=== PATIENT | female | born 1975 ===

== ENCOUNTER 2022-06-08 15:05 | Emergency (ER) | payer OTHER, SELFPAY ==
--- NOTE | ~2022-06-08 | XR_ITS ---
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 RESULT: Lines, tubes, and devices: None. Lungs and pleura: Clear. Cardiomediastinal silhouette: Normal. Other: No acute osseous or upper abdominal finding. IMPRESSION: No acute cardiopulmonary process. Reviewed, dictated and finalized at location K. LLENCE LEADER
[2022-06-08 15:46] VITALS: BP 150/90; PULSE 91; RESP 18; TEMP 36.2; O2SAT 99
--- NOTE | 2022-06-08 16:16 | ED.URI ---
HPI - URI/Sore Throat General Chief Complaint: Upper Respiratory Infection Stated Complaint: Shortness of Breath,Weezing Time Seen by Provider: 06/08/22 16:09 Source: patient Mode of arrival: ambulatory Limitations: no limitations History of Present Illness HPI Narrative: Patient presents today complaining of a 2 week history of sinus pressure, decreased appetite, cough, shortness of breath. She also reports, ?bubbling? with exhalation, mostly at night. She saw her PCP 6 days ago and was placed on amoxicillin, cough medicine, and an inhaler, but has not been improving since that time. Denies history of asthma. Related Data Home Medications Medication Instructions Recorded Confirmed simvastatin 20 mg tablet 20 mg PO DAILY 04/23/22 06/08/22 Probotic 1 tab-cap BYMOUTH DAILY 05/08/22 06/08/22 cholecalciferol (vitamin D3) 50 50 mcg PO DAILY 05/08/22 06/08/22 mcg (2,000 unit) capsule igkrtame-komnhzy-wjza-iron 18 1 tablet PO DAILY 05/08/22 06/08/22 mg-FA 400 mcg-vit K 25 mcg tablet (One-A-Day Women's Complete) Allergies Allergy/AdvReac Type Severity Reaction Status Date / Time benzonatate AdvReac Mild ineffective Verified 06/08/22 15:45 [From Stephy Galvan] Review of Systems Review of Systems: CONSTITUTIONAL: Denies body aches, fever, chills, or sweats. EYES: Denies visual changes, redness, or discharge. ENT: Denies rhinorrhea, sore throat, or otalgia.+ congestion, sinus pressure CARDIOVASCULAR: Denies chest pain, palpitations, or edema. RESPIRATORY: + cough, shortness of breath GASTROINTESTINAL: Denies abdominal pain, nausea, vomiting, or diarrhea.+ decreased appetite GENITOURINARY: Denies dysuria or hematuria. SKIN: Denies rash, itching, or wounds. MUSCULOSKELETAL: Denies back pain, joint pain, or myalgia. NEUROLOGIC: Denies headache, numbness, tingling, or weakness. PSYCH: Denies depression or anxiety. [facility] Family History Family History Father Diabetes mellitus Mother Hypertension Diabetes mellitus Social History Social History Smoking status: Never smoker Alcohol intake: current Drinks per week: 2 Substance use: never Gender identity (if verbalized by the patient): Female Comments At time of signature, I have reviewed and agree with nursing past medical, surgical, social and family history unless otherwise noted. Please see nursing chart for further information. There is no relevant family history pertinent to the presenting complaint Exam Narrative: GENERAL: Mildly ill appearing, well-nourished, and in no acute distress. HEAD: Normocephalic, atraumatic. EYES: EOMI. No redness or drainage. Conjunctivae normal. ENT: Mucous membranes pink and moist. Nares clear. No rhinorrhea. TMs normal bilaterally. Throat normal. Uvula midline. NECK: Normal AROM. Supple. No lymphadenopathy. CHEST: No respiratory distress. Course in the bilateral bases HEART: Regular rate and rhythm. No murmur appreciated. Normal peripheral pulses. EXTREMITIES: Normal range of motion. No edema. SKIN: Warm, dry, no rash. Capillary refill normal. Normal skin turgor. NEURO: No focal deficits. Alert and oriented x3. Gait steady. PSYCH: Normal affect. No signs of depression or anxiety. Course Course Level of Care: Express Care Visit Vital Signs Vital signs: Vital Signs Temperature 97.2 F L 06/08/22 15:46 Pulse Rate 91 06/08/22 15:46 Respiratory Rate 18 06/08/22 15:46 Blood Pressure 150/90 H 06/08/22 15:46 Pulse Oximetry 99 06/08/22 15:46 Oxygen Delivery Room Air 06/08/22 15:46 Temperature 97.2 F L 06/08/22 15:46 Pulse Rate 91 06/08/22 15:46 Respiratory Rate 18 06/08/22 15:46 Blood Pressure 150/90 H 06/08/22 15:46 Pulse Oximetry 99 06/08/22 15:46 Oxygen Delivery Room Air 06/08/22 15:46 Reviewed. Pt has been instructed to follow up
== END 2022-06-08 16:47 | disposition home or self-care (01) ==
PROVIDERS: Emergency Provider Nurse Practitioner
DX: J40 Bronchitis, not specified as acute or chronic (principal)
CPT/HCPCS: 71046; 99213; G0463

== ENCOUNTER 2024-08-12 10:13 | Emergency (ER) | payer BC, SELFPAY ==
[2024-08-12 10:27] VITALS: BP 146/94; PULSE 100; RESP 18; TEMP 36.5; O2SAT 98
[2024-08-12 10:41] LABS: EDCOVIDSCREEN Negative (Negative); EDINFLUASCREEN Positive (Negative); EDINFLUBSCREEN Negative (Negative)
--- NOTE | 2024-08-12 10:48 | ED_ITS ---
HPI - General Adult General Chief complaint: Upper Respiratory Infection Stated complaint: sob Source: patient Mode of arrival: ambulatory Limitations: no limitations History of Present Illness HPI narrative: Patient presents for evaluation of sick symptoms for last 5 days. Symptoms include cough, shortness of breath, sinus congestion, nausea, hot flashes and chills. Denies objective fever and diarrhea. No recent sick contacts to her knowledge. She has been taking Mucinex for her symptoms. She does not smoke. Related Data Home Medications ?Medication ?Instructions ?Recorded ?Confirmed ?Last Taken ?Type Probotic 1 tab-cap BYMOUTH DAILY 05/08/22 01/27/24 Unknown History cholecalciferol (vitamin D3) 50 50 mcg PO DAILY 05/08/22 01/27/24 Unknown History mcg (2,000 unit) capsule ztlhjqtm-uzgfrhi-cwju-iron 18 1 tablet PO DAILY 05/08/22 01/27/24 Unknown History mg-FA 400 mcg-vit K 25 mcg tablet (One-A-Day Women's Complete(with vit K)) vitamin b12 BYMOUTH 01/27/24 01/27/24 Unknown History vitamin c BYMOUTH 01/27/24 01/27/24 Unknown History Allergies Allergy/AdvReac Type Severity Reaction Status Date / Time No Known Allergies Allergy Verified 08/12/24 10:25 Review of Systems Review of Systems: CONSTITUTIONAL: reports hot flashes and chills. Denies fever EYES: Denies visual changes, redness, or discharge. ENT: reports sinus congestion. denies otalgia CARDIOVASCULAR: Denies chest pain, palpitations, or edema. RESPIRATORY: reports cough and shortness of breath GASTROINTESTINAL: Denies abdominal pain, nausea, vomiting, or diarrhea. GENITOURINARY: Denies dysuria or hematuria. SKIN: Denies rash or itching. MUSCULOSKELETAL: Denies back pain, joint pain, or myalgia. NEUROLOGIC: Denies headache, numbness, dizziness, or weakness. PSYCHIATRIC: Denies anxiety or depression. [facility] Past Medical History Medical History Hyperlipidemia HTN (hypertension) Surgical History Surgical History No pertinent past surgical history Family History Family History Father Diabetes mellitus Mother Hypertension Diabetes mellitus Social History Social History Smoking status: Never smoker Alcohol intake: current Drinks per week: 2 Substance use: never Living arrangements: with family Occupation/Education: occupation Gender identity (if verbalized by the patient): Female Exam Narrative: GENERAL: Well-appearing, well-nourished, and in no acute distress. HEAD: Normocephalic, atraumatic. EYES: PERRLA and EOMI. ENT: Nares clear, no rhinorrhea or epistaxis. Mucous membranes moist. Oropharynx without tonsillar hypertrophy exudate or other lesions. Bilateral TMs pearly nguyễn nonbulging NECK: Supple. No adenopathy or masses. No carotid bruits or JVD CHEST: Clear to auscultation. No respiratory distress. No wheezes rales or rhonchi HEART: Regular rate and rhythm. No murmur heard. Normal peripheral pulses. ABDOMEN: Soft, nontender, nondistended, normal active bowel sounds. EXTREMITIES: Normal range of motion. No edema. SKIN: Warm, dry, no rash. NEURO: No focal deficits. Alert and oriented x3. PSYCH: Normal mood and affect. Course Course Emergency Course: This is a 48-year-old female who presented for evaluation of sick symptoms. COVID negative. Influenza A positive. Will treat with Tamiflu. She requested albuterol inhaler. I think this is reasonable. Lywr-mua-xgskxhn agents for symptom management. Follow up with primary provider. Go to the ER for worsening symptoms. Patient in agreement with plan of care. Level of Care: Express Care Visit Vital Signs Vital signs: Vital Signs Temperature 36.5 C 08/12/24 10:27 Pulse Rate 100 08/12/24 10:27 Respiratory Rate 18 08/12/24 10:27 Blood Pressure 146/94 H 08/12/24 10:27 Pulse Oximetry 98 08/12/24 10:27 Oxygen Delivery Room Air 08/12/24 10:27 Temperature 36.5 C 08/12/24 10:27 Pulse Rate 100 08/12/24 10:27 Respiratory Rate 18 08/12/24 10:27 Blood Pressure 146/94 H 08/12/24 10:27 Pulse Oximetry 98 08/12/24 10:27 Oxygen Delivery Room Air 08/12/24 10:27 Medical Decision Making Vital Signs Vital Signs: Vital Signs Temperature 36.5 C 08/12/24 10:27 Pulse Rate 100 08/12/24 10:27 Respiratory Rate 18 08/12/24 10:27 Blood Pressure 146/94 H 08/12/24 10:27 Pulse Oximetry 98 08/12/24 10:27 Oxygen Delivery Room Air 08/12/24 10:27 Temperature 36.5 C 08/12/24 10:27 Pulse Rate 100 08/12/24 10:27 Respiratory Rate 18 08/12/24 10:27 Blood Pressure 146/94 H 08/12/24 10:27 Pulse Oximetry 98 08/12/24 10:27 Oxygen Delivery Room Air 08/12/24 10:27 Lab Data Labs: Lab Results 08/12/24 Range/Units 10:39 POC Influenza A Ag Positive (Negative) POC Influenza B Ag Negative (Negative) POC SARS CoV-2 Ag Negative (Negative) Discharge Plan Discharge Clinical Impression: Influenza A Patient Disposition: Home, Self-Care Condition: Stable Instructions: Antibiotic Form, Influenza (ED) Patient Language: Romansh Prescriptions: New oseltamivir [Tamiflu] 75 mg capsule 75 mg PO Q12H 5 Days Qty: 10 0RF albuterol sulfate [Ventolin HFA] 90 mcg/actuation HFA aerosol inhaler 2 puff inhalation QID PRN (Reason: shortness of breath or wheezing) Qty: 8.5 0RF No Action vitamin b12 BYMOUTH Patient Comments: pt doesnt know dose vitamin c BYMOUTH Patient Comments: pt doesnt know dosing celecoxib [Celebrex] 200 mg capsule 200 mg PO DAILY Qty: 30 0RF cholecalciferol (vitamin D3) 50 mcg (2,000 unit) capsule 50 mcg PO DAILY One-A-Day Women's Complete(vK) 18 mg-400 mcg- 25 mcg tablet 1 tablet PO DAILY Probotic capsule 1 tab-cap BYMOUTH DAILY albuterol sulfate [Ventolin HFA] 90 mcg/actuation HFA aerosol inhaler 2 inh inhalation Q4H PRN (Reason: shortness of breath or wheezing) Qty: 6.7 0RF lisinopril-hydrochlorothiazide 20-12.5 mg tablet 1 tablet PO DAILY Qty: 90 1RF simvastatin 20 mg tablet 20 mg PO DAILY Qty: 90 1RF Follow-up/Referrals: Stephan Flores MD [Physician] - Time of Disposition: 10:47
--- OUTSIDE RECORDS SUMMARY | 2024-08-12 10:57 | XMS_ITS | Encounter Summary ---
Author Organization [facility] Address 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
--- OUTSIDE RECORDS SUMMARY | 2024-08-12 10:57 | XMS_ITS | Clinical Summary ---
Author Organization [facility] Address [address] 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
--- OUTSIDE RECORDS SUMMARY | 2024-08-12 10:57 | XMS_ITS | Encounter Summary ---
Author Organization [facility] Address [address] [place] [address] Care Team Providers Care Block Inspector Name Role Phone Unavailable Primary Care Provider Unavailabl e Encounter Details Date Type Department Care Team (Late st Contact Info) Description 06/21/[address] 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
--- OUTSIDE RECORDS SUMMARY | 2024-08-12 10:57 | XMS_ITS | Encounter Summary ---
Author Organization [facility] Address 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
--- OUTSIDE RECORDS SUMMARY | 2024-08-12 10:57 | XMS_ITS | Clinical Summary ---
Author Organization [facility] Address [address] [place] [address] Care Team Providers Care Photoradio Operator Name Role Phone Mariam John Primary Care Provider [phone] Medications No known medications Family History Medical History Relation Comments Breast Cancer Neg Hx Social History Tobacco Use Types Packs/Day Years Used Date Smoking Tobacco: Never Smokeless Tobacco: Never Alcohol Use Standard Drinks/Week Comments Not Currently 0 (1 standard drink = 0.6 oz pur e alcohol) AUDIT-C Answer Date Recorded Q1: How often do you have a drink containing alc ohol? Never 04/26/2020 Average Number of Drinks Not on file 020 Frequency of Binge Drinking Not on file 04/06 Comments No Sex and Gender Information Value Date Recorded Sex Assigned at Not on file Legal Sex Female 7:23 PM CDT Gender Identity Not on file Sexual Orientation Not on file Last Filed Vital Signs Vital Sign Reading Time Taken Comments Blood Pressure 142/64 04/26/2020 6:15 PM CDT Pulse 90 04/26/2020 6:00 PM CDT Temperature 36.9 C (98.5 F) 04/26/2020 1:57 PM CDT Respiratory Rate 27 04/26/2020 6:00 PM CDT Oxygen Saturation 97% 04/26/2020 6:00 PM CDT Inhaled Oxygen Concentration - - Weight 121.1 kg (267 lb) 04/26/2020 1:57 PM CDT Height 157.5 cm (5' 2 ) 04/26/2020 1:57 PM CDT Body Mass Index 48.83 04/26/2020 1:57 PM CDT Plan of Treatment Health Maintenance Due Date Last Done Comments Cervical Cancer Screening Pap Smear (Age 30 to 64) Every 3 Years 1976 Colorectal Cancer Screening Colonoscopy (10 Years) 1976 Annual Physical 1979 Hepatitis C 1994 DTaP, Tdap and Td Vaccines (1 - Tdap) 1995 Hepatitis B Vaccines (1 of 3 - 19+ 3-dose series) 1995 Cervical Cancer Screening Pap with HPV Testing (Age 30 to 64) Every 5 Years 2006 Cervical Cancer Screening with HPV 2006 COVID-19 Vaccine (2023- season) 2024 02/09/2021, 01/12/2021 Influenza Adult (#1) 2024 Mammogram Screening 03/28/2026 03/28/2024, 01/16/2023, 12/24/2020, Additional history exists Meningococcal B Vaccine Aged Out No l onger eligible based on patient's age to complete this topic Meningococcal Vaccine Aged Out No eleanor adrian eligible based on patient's age to complete this topic Pneumococcal Vaccine: Pediatrics (0 to 5 Years) and At-Risk Patients (6 to 64 Years) Aged Out No longer eligible based on patient's age to complete this topic RSV Immunizations Under 20 Months Aged Out No longer eligible based on patient's age to complete this topic Procedures Procedure Name Priority Date/Time Associated Diagnosis Comments MG SCREENING W JORDEN IVCKY DIGI Routine 03/28/2024 1:21 PM CDT Visit for screening mammogram from Last 3 Months or Most Recently Relevant to Health Maintenance Results * MG SCREENING W JORDEN VICKY DIGI (03/28/2024 1:21 PM CDT) Anatomical Region Laterality Modality Breast Bilateral Mammography 03/29/2024 12:4 9 PM CDT Impressions 03/29/2024 12:50 PM CDT =====IMPRESSION:===== No mammographic findings suggestive of malignancy ASSESSMENT: ACR BI-RADS 2 - BENIGN FINDING(S) Recommendation: 1: Routine Screening Bilateral COMMENTS: Ordered By: GURDEEP HUITRON Interpreted By: Toby Gan MD, 03/29/2024 12:49 PM Narrative 03/29/2024 12:50 PM CDT [facility] [address] [place] [address] EXAMINATION: Digital bilateral screening mammogram with 3-D tomosynthesis EXAM DATE/TIME: 03/28/2024 12:47 PM REASON FOR EXAM: YEARLY EXAM Screening COMPARISON: Priors including January 2023, May 2020. TECHNIQUE: Digital screening mammography of both breasts was performed in addition to 3-D Tomosynthesis technique. This study was read with the assistance of a computer-aided detection system. TISSUE DENSITY: There are scattered areas of fibroglandular density. FINDINGS: No suspicious masses, malignant appearing calcifications, skin thickening or other abnormalities are present. No significant change from the prior exam. Gurdeep Huitron CHIEF SERVICE DISPATCHER MAMMO Final Result from Last 3 Months or Most Recently Relevant to Health Maintenance Insurance [facility] [employer] Care Teams Photoradio Operator Relationship Specialty Start Date End Date Mariam John PA [address] [place] [id number] PCP - General PHYSICIAN BLENDER CONVEYOR OPERATOR 03/28/24
--- OUTSIDE RECORDS SUMMARY | 2024-08-12 10:57 | XMS_ITS | Encounter Summary ---
Author Organization [facility] Address 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
== END 2024-08-12 10:55 | disposition home or self-care (01) ==
PROVIDERS: Emergency Provider Nurse Practitioner
DX: J10.1 Influenza due to other identified influenza virus with other respiratory manifestations (principal); Z20.822 Contact with and (suspected) exposure to COVID-19; I10 Essential (primary) hypertension; E78.5 Hyperlipidemia, unspecified
CPT/HCPCS: 87426; 87804; 99213; G0463